=== PATIENT | male | born 1980 | race Caucasian/White ===

== ENCOUNTER 2021-12-21 10:18 | Emergency (ER) | payer SELFPAY ==
[2021-12-21 10:26] VITALS: BP 154/92; PULSE 90; RESP 20; TEMP 36.9; O2SAT 96
--- NOTE | 2021-12-21 10:30 | DI.RAD_ITS ---
Exam(s) XR ELBOW RT COMPLETE EXAM: XR ELBOW RT COMPLETE CLINICAL HISTORY: Right Elbow pain R/O tendonitis. TECHNIQUE: 2D digital imaging was performed. COMPARISON: No exams were available for comparison FINDINGS: BONES: No acute fracture is present. No bony destructive lesion is seen. JOINTS: The elbow is normally aligned. No joint effusion is seen. SOFT TISSUE: Normal. IMPRESSION: Unremarkable radiographs of the right elbow. DATA REPOSITORY: RADIATION DOSE DELIVERED:
--- NOTE | 2021-12-21 10:38 | ED.GENADUL_ITS ---
Discharge Plan Disposition Patient Disposition: HOME Condition: Stable Discharge Details Clinical Impression: Sprain of elbow, right Primary Care Provider: None,None ED Provider: Vanessa Cleaning Home Meds and New Rx's Prescriptions: No Action No Known Home Meds 0RF Discharge Instructions Instructions: Elbow Sprain (ED), Tendinitis (ED) Additional Instructions: X-rays show no acute abnormalities. Please take Tylenol or Ibuprofen with food every 4-6 hours as needed for pain and swelling. Use the splint and Keron wrap as needed for comfort. Wear sling while resting. Rest, ice, compression, elevation. Follow up with primary care provider in 3-5 days. Return to ED sooner if any worsening or concerns. Increase oral fluids. If continued pain please follow-up with orthopedics in the next 1 to 2 weeks. Stand Alone Forms: Work Release Referrals: Rickie Anne MD [ [facility] STAFF PHYSICIAN] - 2 weeks Medical Decision Making 41-year-old male presents to the ER with chief complaint of right forearm and elbow pain x1/2 months. Patient reports that he did a heavy lifting activity and felt a pop to his inner right AC and it has been bothering him since. Pain is worse with pronation and supination and placing pressure. Pain is also worse with thumb and little finger discrimination. He has not taken any Tylenol or ibuprofen. 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 Denies any other known injuries. No obvious deformity or swelling noted on initial exam. Distal CMS is intact. Past medical history includes hypertension. Past surgical history includes a hernia repair. No known drug allergies no home medications. I suspect tendinitis or some lower versus sprain. Imaging ordered to rule out any bony abnormality. Discussed RICE procedures with patient Tylenol ibuprofen. And follow-up with Ortho if symptoms persist. Patient verbalizes understanding. EXAM: XR ELBOW RT COMPLETE CLINICAL HISTORY: Right Elbow pain R/O tendonitis. TECHNIQUE: 2D digital imaging was performed. COMPARISON: No exams were available for comparison FINDINGS: BONES: No acute fracture is present. No bony destructive lesion is seen. JOINTS: The elbow is normally aligned. No joint effusion is seen. SOFT TISSUE: Normal. IMPRESSION: Unremarkable radiographs of the right elbow. Discussed RICE procedures the patient verbalized understanding. Patient was given Keron wrap and sling directed on Tylenol ibuprofen. This text was generated using [employer] dictation system, please disregard any oddities of phrase or misspellings. HPI General Mode of arrival: ambulatory . Date/Time Provider Initiated Documentation: 12/21/21 10:19 . Limitations to Documentation: no limitations . Information obtained by: patient, RN notes reviewed and old records reviewed . HPI Narrative: 41-year-old male presents to the ER with chief complaint of right forearm and elbow pain x1/2 months. Patient reports that he did a heavy lifting activity and felt a pop to his inner right AC and it has been bothering him since. Pain is worse with pronation and supination and placing pressure. Pain is also worse with thumb and little finger discrimination. He has not taken any Tylenol or ibuprofen. 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 Denies any other known injuries. No obvious deformity or swelling noted on initial exam. Distal CMS is intact. Past medical history includes hypertension. Past surgical history includes a hernia repair. No known drug allergies no home medications. Related Data Home Medications Medication Instructions Recorded Confirmed Unknown [No Known Home Meds] 12/21/21 12/21/21 Allergies Allergy/AdvReac Type Severity Reaction Status Date / Time No Known Allergies Allergy Unverified 12/21/21 10:31 General Stated Complaint: Orthopedic OVIDIO: 4 Review of Systems All systems reviewed & are unremarkable except as noted in HPI and below Musculoskeletal Musculoskeletal: Reports as per HPI and Reports arthralgias PFSH All Active Problems (Updated 12/21/21 @ 11:24 by Vanessa Cleaning) Sprain of elbow, right (Acute) Social History Smoking/Tobacco Use Status: Current every day Tobacco Type: cigarettes Smoking risk assessment performed?: Yes Alcohol Intake: current Alcohol Intake frequency: holidays/special occasions only Drug use: Occasionally Substance use type: marijuana Do you feel safe at home: Yes Do you feel safe in your relationship?: Yes Exam Extrem Right upper extremity: normal to inspection, normal capillary refill, no joint enlargement and elbow/forearm Details: normal to inspection, tenderness (Pain with pronation supination, two-point discrimination.) Location: of the antecubital fossa and of the medial epicondyle and distal pulses intact; Negative for no lacerations, no ecchymosis and no crepitus; No no cyanosis and no edema Course Vital Signs Vital signs: Vital Signs Temperature 36.9 C 12/21/21 10:26 Pulse 90 12/21/21 10:26 Respiratory Rate 20 12/21/21 10:26 Blood Pressure 154/92 H 12/21/21 10:26 Pulse Oximetry 96 12/21/21 10:26 Temperature 36.9 C 12/21/21 10:26 Temperature Source Skin 12/21/21 10:26 Pulse 90 12/21/21 10:26 Respiratory Rate 20 12/21/21 10:26 Respiratory Effort 12/21/21 10:30 Blood Pressure 154/92 H 12/21/21 10:26 Pulse Oximetry 96 12/21/21 10:26 Oxygen Delivery Method Room Air 12/21/21 10:26 Oxygen Flow Rate 0 12/21/21 10:26 Pain Level 8 12/21/21 10:26
[2021-12-21] MEDS: Ibuprofen 600 MG TAB PO (11:11)
== END 2021-12-21 11:40 | disposition home or self-care (01) ==
PROVIDERS: Emergency Provider Registered Nurse Emergency
DX: S53.492A Other sprain of left elbow, initial encounter (principal); X50.0XXA Overexertion from strenuous movement or load, initial encounter
CPT/HCPCS: 99283; 73080

== ENCOUNTER 2023-01-08 15:28 | Emergency (ER) | payer SELFPAY ==
[2023-01-08 15:31] VITALS: BP 165/99; PULSE 82; RESP 18; TEMP 36.7; O2SAT 100
--- NOTE | 2023-01-08 15:41 | W.ED.GENAD ---
Discharge Plan Disposition Patient Disposition: Home Condition: Stable Discharge Details Clinical Impression: Dental infection Primary Care Provider: None,None ED Provider: Vanessa Cleaning Home Meds and New Rx's Prescriptions: New amoxicillin-pot clavulanate 875-125 mg tablet 1 tab PO BID 10 Days Qty: 20 0RF No Action doxycycline monohydrate 100 mg tablet 100 mg PO BID Qty: 14 0RF Patient Comments: patient not taking any home medications at this time Discharge Instructions Instructions: Toothache (ED) Additional Instructions: Use the HurriCaine gel up to 3 times daily as needed for pain. Take the antibiotics twice daily for the next 10 days as directed. Practice good oral hygiene. Please follow-up with a dentist. Please take Tylenol or Ibuprofen with food every 4-6 hours as needed for pain and swelling. Discharge Data Discharge Date/Time-TO BE ENTERED AT DEPARTURE: 01/08/23 16:19 Medical Decision Making Patient given HurriCaine gel, Augmentin 1 tablet twice daily for the next 10 days. First dose given here in the ER. Patient was given dental resources and encouraged to follow-up with dentist. Discussed tricked return instructions. This text was generated using [employer] dictation system, please disregard any oddities of phrase or misspellings. HPI General Mode of arrival: ambulatory. Date/Time Provider Initiated Documentation: 01/08/23 15:31. Limitations to Documentation: no limitations. Information obtained by: patient, RN notes reviewed and old records reviewed. HPI Narrative: 42 year old male presents to the ER with chief complaint of right upper dental pain and facial swelling. He does have chronic poor dentition he reports he does not see a dentist. He reports over the last few days the swelling and pain have increased and he is sensitive to cold. He does have an eroded tooth, some swelling and erythema of the gums. Posterior oropharynx within normal limits. He is a smoker. He has not been on any antibiotics recently per his report. He does have a past medical history of hypertension Related Data Home Medications Medication Instructions Recorded Confirmed doxycycline monohydrate 100 mg 100 mg PO BID #14 tabs 04/20/22 tablet amoxicillin 875 mg-potassium 1 tab PO BID 10 days #20 tabs 01/08/23 clavulanate 125 mg tablet Previous Rx's Medication Instructions Recorded doxycycline monohydrate 100 mg 100 mg PO BID #14 tabs 04/20/22 tablet amoxicillin 875 mg-potassium 1 tab PO BID 10 days #20 tabs 01/08/23 clavulanate 125 mg tablet Allergies Allergy/AdvReac Type Severity Reaction Status Date / Time No Known Allergies Allergy Unverified 12/21/21 10:31 General Stated Complaint: DentalOral OVIDIO: 4 Review of Systems All systems reviewed & are unremarkable except as noted in HPI and below ENT Ears, Nose, Mouth, and Throat: Reports dental pain and Reports facial pain (Facial swelling) PFSH All Active Problems (Updated 01/08/23 @ 16:01 by Vanessa Cleaning NP) Dental infection (Acute) Social History Smoking/Tobacco Use Status: Current every day Tobacco Type: cigarettes Years smoked: 27 Smoking risk assessment performed?: Yes Alcohol Intake: current Alcohol Intake frequency: holidays/special occasions only Drug use: Occasionally Substance use type: marijuana Do you feel safe at home: Yes Do you feel safe in your relationship?: Yes Exam [facility] Head images: 1. Facial swelling General nose exam: external nose normal and nares normal Teeth and gingiva: caries, gingiva abnormal edematous and diffusely erythematous and poor dentition Throat: posterior oropharynx normal Course Vital Signs Vital signs: Vital Signs Temperature 36.7 C 01/08/23 15:31 Pulse 82 01/08/23 15:31 Respiratory Rate 18 01/08/23 15:31 Blood Pressure 165/99 H 01/08/23 15:31 Pulse Oximetry 100 01/08/23 15:31 Temperature 36.7 C 01/08/23 15:31 Temperature Source Temporal Artery Scan 01/08/23 15:31 Pulse 82 01/08/23 15:31 Respiratory Rate 18 01/08/23 15:31 Blood Pressure 165/99 H 01/08/23 15:31 Blood Pressure Position Sitting 01/08/23 15:31 Pulse Oximetry 100 01/08/23 15:31 Oxygen Delivery Method Room Air 01/08/23 15:31 Oxygen Flow Rate 0 01/08/23 15:31 Pain Level 6 01/08/23 15:31
[2023-01-08] MEDS: Amox. 875/Clav. 125, 2 TABS/BTL 1 TAB PO (15:52)
[2023-01-08] MEDS: Amoxicillin 875/Clav. 125 TAB PO (15:54)
[2023-01-08] MEDS: Benzocaine 20% Gel 30 GM JAR MM (15:54)
== END 2023-01-08 16:19 | disposition home or self-care (01) ==
PROVIDERS: Emergency Provider Registered Nurse Emergency
DX: K04.7 Periapical abscess without sinus (principal)
CPT/HCPCS: 99283; 99284

== ENCOUNTER 2023-06-12 12:49 | Emergency (ER) | payer SELFPAY ==
[2023-06-12 13:08] VITALS: BP 188/117; PULSE 49; RESP 18; TEMP 37.1; O2SAT 94
--- NOTE | 2023-06-12 13:39 | W.ED.GENAD ---
Discharge Plan Disposition Patient Disposition: Home Condition: Improving Discharge Details Clinical Impression: Dental caries into pulp, Left elbow pain Primary Care Provider: Unknown,Unknown ED Provider: Amy Castelan Home Meds and New Rx's Prescriptions: New penicillin V potassium 500 mg tablet 500 mg PO QID Qty: 40 0RF Rx Instructions: Take with a probiotic No Action doxycycline monohydrate 100 mg tablet 100 mg PO BID Qty: 14 0RF Patient Comments: patient not taking any home medications at this time Discharge Instructions Instructions: Dental Caries (ED), How to Use a Sling (ED), Elbow Sprain (ED), Cervical Radiculopathy (ED) Additional Instructions: 1. Start penicillin 500 mg every 6 hours for 10 days. Take a probiotic while on antibiotics. Call or take an appoint with the dentist and return to the emergency department if you develop any difficulty breathing talking or swallowing. 2. Your elbow pain may be from your previous injury but also could be a pinched nerve in your neck. You will be contacted by the orthopedic office for follow-up appointment for your elbow. Tell them about the neck pain as well. 3. Alternate 1000 mg of acetaminophen every 3 hours with 400 to 600 mg of ibuprofen as needed for pain. You may also use an skit-fto-lwnnusw analgesic such as Anbesol for the toothache. 4. You will also be contacted by the primary care clinic for follow-up for your blood pressure. You should take your blood pressure at the drugstore and record it to bring with you to your follow-up appointment. Discharge Data Discharge Physician: Amy Castelan Medical Decision Making This is a 42-year-old male who presents with dental caries without evidence of buccal cellulitis, Ludewig's angina or dental abscess. He has poor general dentition and has never seen a dentist that he can recall in his lifetime. The pain does radiate to the left ear but that appears to be normal and is probably just referred pain. My plan is to perform a dental block adjacent to the affected teeth and start him on penicillin. He is also complaining of elbow pain after an injury several months ago. The pain does radiate to his neck. He has not had any injury to his neck but he certainly could have a cervical radiculopathy. We will obtain plain films of the left elbow to rule out occult fracture. The patient does have a sling at home which he has been using. My plan is to discharge him on penicillin with orthopedic, primary care and dental follow-up. Differential Diagnosis Differential Diagnosis: Dental caries, apical abscess, cervical radiculopathy, elbow fracture Medical Records Medical records reviewed: Yes I reviewed the patient's medical records. Imaging Data Radiologic Study: Imaging: X-Ray Radiologist's impression: Unremarkable radiographs of the left elbow HPI General Mode of arrival: ambulatory. Date/Time Provider Initiated Documentation: 06/12/23 13:39. Limitations to Documentation: no limitations. Information obtained by: patient. History of Present Illness with intensity rated at 10. Patient did receive the following treatments prior to arrival, none HPI Narrative: Time seen was 1341 in bed 10. 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 The patient states that he has never seen a dentist. He has never had his wisdom teeth extracted. He has had gradually increasing and intermittent left upper and left lower jaw pain which got worse over the past several days. The pain is currently 10 out of 10 in severity and radiates to his left ear. He denies any swelling in his mouth or difficulty breathing talking or swallowing. He denies any foul discharge in his mouth. The pain is constant and aggravated by eating and extremes of temperature. He denies any fever or chills. The patient is also complaining of left elbow pain after an injury several months ago where he slipped and hit it against an object. He has not been seen for the elbow. He denies any numbness or tingling. He states that the pain radiates to his left neck. He tells me that the elbow pain is aggravated when he drives. He denies any injury prior to the injury several months ago. He denies any swelling under his tongue. He has no history of immune compromise. Related Data Home Medications Medication Instructions Recorded Confirmed doxycycline monohydrate 100 mg 100 mg PO BID #14 tabs 04/20/22 tablet penicillin V potassium 500 mg 500 mg PO QID #40 tabs 06/12/23 tablet Previous Rx's Medication Instructions Recorded doxycycline monohydrate 100 mg 100 mg PO BID #14 tabs 04/20/22 tablet penicillin V potassium 500 mg 500 mg PO QID #40 tabs 06/12/23 tablet Allergies Allergy/AdvReac Type Severity Reaction Status Date / Time No Known Allergies Allergy Unverified 12/21/21 10:31 General Stated Complaint: DentalOral OVIDIO: 4 Review of Systems Narrative: see hpi Respiratory Comments: The patient does smoke PFSH All Active Problems Dental caries into pulp (Acute) Left elbow pain (Acute) Social History Smoking/Tobacco Use Status: Current every day Tobacco Type: cigarettes Years smoked: 27 Smoking risk assessment performed?: Yes Alcohol Intake: current Alcohol Intake frequency: holidays/special occasions only Drug use: Occasionally Substance use type: marijuana Do you feel safe at home: Yes Do you feel safe in your relationship?: Yes Exam Narrative Exam Narrative: The patient is a well-developed well-nourished male with normal phonation. He is slightly hypertensive. He is not tachycardic tachypneic or febrile. His room air O2 sat is acceptable at 94% he does not appear in acute respiratory distress. Const General: cooperative, healthy appearing, comfortable, no acute distress, well developed, well groomed and well hydrated Nutritional Appearance: average body habitus and well nourished Orientation: alert, awake and oriented x3 HENMT Head: normal to inspection, normocephalic and atraumatic Ears: hearing grossly normal bilaterally, external ears normal and TM normal on the left General nose exam: external nose normal, nares normal and no nasal discharge Face and sinus: normal facial exam, sinuses nontender, face symmetric and other (No facial swelling or erythema) Mouth: oral mucosae normal, lip normal, tongue normal, oropharynx normal, moist mucous membranes and other (Normal phonation. The patient is handling secretions.) Teeth and gingiva: poor dentition and other (The patient does have a large cavity in tooth #13 and 17.) Throat: posterior oropharynx normal and uvula midline Other: No evidence of Unruly's angina. No swelling underneath the tongue. No buccal cellulitis. Airways patent no stridor. He is handling secretions. He does have gingivitis and severe plaque buildup at the base of most of his teeth. The caries are down to the pulp. No significant submandibular adenopathy Eyes General: appearance normal, both eyes and all related structures Eyelids: eyelids normal Conjunctivae: conjunctivae normal Sclera: sclerae normal Cornea: corneas normal Pupils: PERRL EOM: EOM intact bilaterally and No nystagmus Neck Neck: normal visual inspection, full ROM, no lymphadenopathy, no meningeal signs, trachea midline and supple Lymphatic: no lymphadenopathy noted Chest Chest: normal inspection of the chest Resp Effort & Inspection: normal respiratory effort, able to speak in complete sentences, no audible wheezes, no nasal flaring, no respiratory distress, no retractions, no stridor, not tachypneic, no tracheal deviation, no use of accessory muscles, No prolonged expiratory phase and other (Normal inspiratory to expiratory ratio.) Auscultation: clear to auscultation bilaterally, no rales, no rhonchi, no wheezes and no rubs Tactile Fremitus: tactile fremitus absent Cardio Jugular venous pressure: no JVD Palpation: normal PMI Rate: regular rate Rhythm: regular rhythm Heart Sounds: S1 normal, S2 normal, no gallops, no murmurs and no rubs GI Inspection: normal to inspection and non-distended Palpation: soft, no hepatosplenomegaly, no guarding and nontender Percussion: normal to percussion Auscultation: normal bowel sounds Back/Spine/Pelvis Back: no CVA tenderness and No back tenderness Cervical Spine: normal cervical lordosis, cervical ROM normal, No cervical muscular tenderness, No pain with cervical ROM, No cervical spinal tenderness and No step off deformity Thoracic/Lumbar Spine: thoracic and lumbar spine normal to inspection, No thoracic spinal tenderness and No lumbar spinal tenderness Skin General skin exam: no rashes or lesions noted, turgor normal, no petechiae, no purpura and other (Skin is normal for ethnicity.) Lesions: no lesions Rashes: no rashes Trauma: no lacerations or abrasions Neuro General: patient alert, patient awake, patient oriented x3, moves all extremities, no meningeal signs, no focal motor deficits and CN's II-XI intact bilaterally Cranial Nerves: CN's II-XI intact bilaterally, PERRL, accommodation normal, EOM intact bilaterally, no nystagmus, facial strength normal, tongue midline, hearing normal and no nystagmus Cognition: normal cognition Speech: speech normal Gait: normal gait Motor: muscle tone normal throughout and strength 5/5 throughout Sensory Exam: no sensory deficits noted Extrem Other: He is moving all of his extremities normally. The left elbow has full range of motion but is slightly tender over the lateral epicondyles of the left elbow. He is full range of motion of the left wrist hand and shoulder. He is neurovascularly intact distal to the left elbow. The remainder of his extremities are unremarkable no edema cyanosis or clubbing Psych Appearance: grossly normal Affect: normal affect Attitude: cooperative Thought Process: normal Thought Content: normal Insight: insight good Judgment: judgment good Other: The patient appears to have capacity make medical decisions. Course The patient had improvement of his dental pain after the block. I have advised him to follow-up with primary care orthopedics and dentistry. I have advised him to alternate acetaminophen and and ibuprofen as needed for pain. I have advised him to take penicillin as directed and to take a probiotic. Patient voiced understanding and agreement with the discharge plan. All his questions and concerns were addressed prior to discharge Vital Signs Vital signs: Vital Signs Temperature 37.1 C 06/12/23 13:08 Pulse 49 L 06/12/23 13:08 Respiratory Rate 18 06/12/23 13:08 Blood Pressure 188/117 H 06/12/23 13:08 Pulse Oximetry 94 06/12/23 13:08 Temperature 37.1 C 06/12/23 13:08 Temperature Source Skin 06/12/23 13:08 Pulse 49 L 06/12/23 13:08 Respiratory Rate 18 06/12/23 13:08 Respiratory Effort Normal 06/12/23 13:10 Blood Pressure 188/117 H 06/12/23 13:08 Blood Pressure Position Sitting 06/12/23 13:08 Pulse Oximetry 94 06/12/23 13:08 Oxygen Delivery Method Room Air 06/12/23 13:08 Oxygen Flow Rate 0 06/12/23 13:08 Pain Level 10 06/12/23 13:08 Procedures Other Description: After verbal consent, dental block was placed using plain 0.5% bupivacaine adjacent to the affected teeth with improvement of his symptoms. He tolerated the procedure well
[2023-06-12] MEDS: Ibuprofen 600 MG TAB PO (13:57)
[2023-06-12] MEDS: Acetaminophen 500 MG TAB 1000 MG PO (13:57)
[2023-06-12] MEDS: Penicillin V POTASSIUM 500 MG TAB PO (13:58)
--- NOTE | 2023-06-12 14:29 | DI.RAD_ITS ---
Exam(s) XR ELBOW LT COMPLETE EXAM: XR ELBOW LT COMPLETE CLINICAL HISTORY: trauma 6 months ago. TECHNIQUE: 2D digital imaging was performed. Three views. COMPARISON: CR XR ELBOW RT COMPLETE from 12/21/2021 FINDINGS: BONES: No acute fracture is present. No bony destructive lesion is seen. JOINTS: The elbow is normally aligned. No joint effusion is seen. SOFT TISSUE: Normal. IMPRESSION: Unremarkable radiographs of the left elbow. DATA REPOSITORY: RADIATION DOSE DELIVERED:
[2023-06-12 15:10] VITALS: BP 168/104; PULSE 80
[2023-06-12 15:43] VITALS: BP 168/104; PULSE 80; RESP 14; TEMP 36.7
--- NOTE | 2023-06-12 20:19 | NUR.NOTE ---
Pt placed on care management list to establish PCP.
== END 2023-06-12 15:39 | disposition home or self-care (01) ==
PROVIDERS: Emergency Provider Emergency Medicine Emergency Medical Services
DX: K08.89 Other specified disorders of teeth and supporting structures (principal); M25.522 Pain in left elbow; K02.9 Dental caries, unspecified; W01.198A Fall on same level from slipping, tripping and stumbling with subsequent striking against other object, initial encounter
CPT/HCPCS: 64400; 99283; 73080

== ENCOUNTER 2023-06-14 06:14 | Emergency (ER) | payer SELFPAY ==
[2023-06-14 06:17] VITALS: BP 201/142; PULSE 82; RESP 18; TEMP 36.8; O2SAT 99
--- NOTE | 2023-06-14 06:37 | W.ED.GENAD ---
Discharge Plan Disposition Patient Disposition: Home Condition: Good Discharge Details Clinical Impression: Pain, dental Primary Care Provider: Unknown,Unknown ED Provider: Samuel Wen Home Meds and New Rx's Prescriptions: No Action doxycycline monohydrate 100 mg tablet 100 mg PO BID Qty: 14 0RF Patient Comments: patient not taking any home medications at this time penicillin V potassium 500 mg tablet 500 mg PO QID Qty: 40 0RF Rx Instructions: Take with a probiotic Discharge Instructions Instructions: Toothache (ED) Additional Instructions: The block we administered should help improve your pain. Please take 800 mg of ibuprofen every 6 hours and 1000 mg of Tylenol every 6 hours to help with the inflammation and pain. These are the maximum doses. Please take the antibiotic as directed to help with the infection in your tooth. Please use the dental list that we have provided to contact the dentist for prompt follow-up and evaluation for tooth removal. If you notice any worsening of your symptoms, or any new symptoms such as difficulty swallowing, difficulty breathing, vomiting, diarrhea, fever, chills, shortness of breath, chest pain, numbness, weakness, or fainting , please return immediately to the emergency department for reevaluation. Please follow up with your primary care provider as soon as possible for reassessment and reevaluation. As always, it was a pleasure participating in your medical care today. Medical Decision Making This is a pleasant 42-year-old male with no significant past medical history except for dental caries who presents today for left upper dental pain. He was seen just a few days ago for dental pain. Dental block was performed, unfortunately he states that it did not help at all when it was administered. He was started on penicillin and he has been taking this as directed. He has not been able to follow-up with a dentist yet. He presents tonight because pain is still notable. He has been taking Tylenol and Motrin and that is the only thing that can help. No other complaints at this time. No difficulty swallowing or drinking. No vision changes. Exam demonstrates notable dental caries, no evidence of periapical abscess, Ludewig's angina, swelling or other abnormalities. Suspect continued pulpitis. Did offer dental block, patient accepted, dental block administered and patient states that his pain resolved completely after block. Patient feels much better. Will recommend continuation of antibiotics. Patient did not have a dental sheet, we will give him a dental sheet to go home with. Recommend continuation of the antibiotics, continued NSAID use. We will give a small bottle of [place] pills for home. I have extensively reviewed the treatment plan and discharge instructions with the patient. I have addressed all patient concerns at this time. The patient was made aware of what symptoms to monitor for that would warrant a return to the emergency department. Discussed the plan with the patient, they demonstrate verbal understanding and agreement with our assessment and plan at this time. The documentation in this chart was dictated using [employer] dictation software. Please excuse any dictation errors. HPI General Date/Time Provider Initiated Documentation: 06/14/23 06:22. HPI Narrative: This is a pleasant 42-year-old male with no significant past medical history except for dental caries who presents today for left upper dental pain. He was seen just a few days ago for dental pain. Dental block was performed, unfortunately he states that it did not help at all when it was administered. He was started on penicillin and he has been taking this as directed. He has not been able to follow-up with a dentist yet. He presents tonight because pain is still notable. He has been taking Tylenol and Motrin and that is the only thing that can help. No other complaints at this time. No difficulty swallowing or drinking. No vision changes. Related Data Home Medications Medication Instructions Recorded Confirmed doxycycline monohydrate 100 mg 100 mg PO BID #14 tabs 04/20/22 tablet penicillin V potassium 500 mg 500 mg PO QID #40 tabs 06/12/23 tablet Previous Rx's Medication Instructions Recorded doxycycline monohydrate 100 mg 100 mg PO BID #14 tabs 04/20/22 tablet penicillin V potassium 500 mg 500 mg PO QID #40 tabs 06/12/23 tablet Allergies Allergy/AdvReac Type Severity Reaction Status Date / Time No Known Allergies Allergy Unverified 12/21/21 10:31 General Stated Complaint: DentalOral OVIDIO: 4 Review of Systems All systems reviewed & are unremarkable except as noted in HPI and below PFSH All Active Problems Dental caries into pulp (Acute) Left elbow pain (Acute) Pain, dental (Acute) Social History Smoking/Tobacco Use Status: Current every day Tobacco Type: cigarettes Years smoked: 27 Smoking risk assessment performed?: Yes Alcohol Intake: current Alcohol Intake frequency: holidays/special occasions only Do you feel safe at home: Yes Do you feel safe in your relationship?: Yes Exam Narrative Exam Narrative: 1.Const: Well-nourished, Well-developed, appearing stated age 2.Eyes: PERRL, no conjunctival injection, and symmetrical lids. 3.ENT: Atraumatic external nose and ears. Moist MM. Neck: Symmetric, trachea midline, No thyromegaly. Notable dental caries. No evidence of Ludewig's angina. No evidence of airway compromise. 4.CVS: +S1/S2, No murmurs or gallops. Peripheral pulses 2+ and equal in all extremities. Brisk capillary refill in all extremities. 5.RESP: Unlabored respiratory effort. Clear to auscultation bilaterally. No wheezes rales or rhonchi 6.GI: Soft, Nontender/Nondistended, No hepatosplenomegaly. No guarding or rebound. 7.MSK: Normocephalic/Atraumatic, Extremities w/o deformity or ttp No cyanosis or clubbing, Normal movement of all extremities 8.Skin: Warm, Dry. No rashes or lesions. 9.Neuro: medical device II-XII grossly intact. Sensation grossly intact, no focal neurologic deficits. 10.Psych: (AAO) x3. Appropriate mood and affect Course Vital Signs Vital signs: Vital Signs Temperature 36.8 C 06/14/23 06:17 Pulse 82 06/14/23 06:17 Respiratory Rate 18 06/14/23 06:17 Blood Pressure 201/142 H 06/14/23 06:17 Pulse Oximetry 99 06/14/23 06:17 Temperature 36.8 C 06/14/23 06:17 Temperature Source Oral 06/14/23 06:17 Pulse 82 06/14/23 06:17 Respiratory Rate 18 06/14/23 06:17 Respiratory Effort Normal 06/14/23 06:20 Blood Pressure 201/142 H 06/14/23 06:17 Pulse Oximetry 99 06/14/23 06:17 Oxygen Delivery Method Room Air 06/14/23 06:17 Oxygen Flow Rate 0 06/14/23 06:17 Pain Level 9 06/14/23 06:20 Procedures Nerve Block Nerve Block 1: Time out performed: Yes Local Anesthetic: Bupivicaine 0.25% Amount of anesthesia used (mL): 6 Side: left Intraoral Nerve Block: superior alveolar Procedure Successful: Yes Patient Tolerated Procedure: well and no complications Complications: none PAWSS Have you Been Recently Intoxicated or Drunk Within the Last 30 days?: No Have you Ever Experienced Previous Episodes of Alcohol Withdrawal?: No Have you ever Experienced Withdrawal Seizures?: No Have you ever Experienced Delirium Tremens(DT)s?: No Have you ever undergone Alcohol Rehabilitation Treatment (i.e, inpt ot outpatient treatment programs)?: No Have you ever Experienced Blackouts?: No Have you ever Combined Alcohol with other Downers within the last 90 days?: No Have you ever Combined Alcohol with any other Substance of Abuse during the last 90 days?: No Positive Blood Alcohol level on Presentation? [PCS.BAL]: No Evidence of Increased Autonomic Activity (i.e. HR>120, tremor, sweating, agitation, nausea)?: No Result: 0
== END 2023-06-14 06:44 | disposition home or self-care (01) ==
PROVIDERS: Emergency Provider Student in an Organized Health Care Education/Training Program
DX: K08.89 Other specified disorders of teeth and supporting structures (principal); F17.210 Nicotine dependence, cigarettes, uncomplicated
CPT/HCPCS: 64400; 99283

== ENCOUNTER 2024-09-01 11:03 | Emergency (ER) | payer SELFPAY ==
[2024-09-01 11:06] VITALS: BP 105/71; PULSE 73; RESP 15; TEMP 36.3; O2SAT 98
--- NOTE | 2024-09-01 11:06 | ED.GENADUL_ITS ---
Discharge Plan Disposition Patient Disposition: Home Discharge Details Clinical Impression: Community acquired pneumonia of right lung Primary Care Provider: None,None ED Provider: Rick Ricci Home Meds and New Rx's Prescriptions: New amoxicillin 500 mg tablet 500 mg PO BID Qty: 14 0RF Discharge Instructions Instructions: Community-acquired pneumonia in adults Additional Instructions: You were seen in the emergency department for your cough. You are found to have a pneumonia for which you are receiving antibiotics that you should take as directed. As we discussed, if you develop worsening pain passout or develop fevers please return to the emergency department. For your pain please take medications as follows: 1. Take acetaminophen (Tylenol), 1,000 mg (two 500 mg tabs) every 6 hours [2. Take ibuprofen (Advil), 400 mg every 6 hours.] Stand Alone Forms: Work Release Discharge Data Discharge Date/Time-TO BE ENTERED AT DEPARTURE: 09/01/24 13:21 HPI General Date/Time Provider Initiated Documentation: 09/01/24 11:06 . HPI Narrative: MDM This is an overall very well-appearing afebrile and not tachycardic 44-year-old male with productive cough and small-volume hematemesis concerning for the possibility of pneumonia for which he will chest x-ray and COVID swab. Patient is not having chest pain or any large-volume hematemesis so I am not suspicious for PE so I did not feel he required a CT angiogram. He has not been vomiting so my suspicion is low for hematemesis. He has no history of malignancy so I am not suspicious for any erosion in any pulmonary vessels. No trauma to suggest increased risk for bronchial tree injury so we will defer CT scan. He is not anticoagulated so I do not feel that he requires assessment of his hemoglobin as he is neither tachycardic nor hypotensive and he does not have pale mucous conjunctiva so my suspicion for acute blood loss anemia is low as I do not feel he requires any laboratory assessment. No recent epistaxis to suggest source of bleeding. He is maintaining his saturations on room air and even if he does have a pneumonia I feel he will be appropriate for empiric trial of outpatient management and as result given that he is not vomiting I did not obtain a basic metabolic panel as I did not feel that he required assessment of a port score. He has no history of any bleeding dyscrasias so I am not suspicious for any malignancies. Will swab for COVID and reassess following two-view chest x-ray. 12:11 PM On chest x-ray patient had right-sided infiltrate. Will treat with amoxicillin for 7 days. Patient I discussed that he should return if he developed worsening bloody sputum chest pain or if he passed out. He understood his return indications and is discharged with an empiric trial of expectant outpatient management. HPI This is a 44-year-old male arrived to the emergency department via private vehicle in the setting of cough shortness of breath and bloody sputum. Patient reports that he had increased sputum over the past week. He felt particularly short of breath with activity and woke up with bloody sputum in his mouth 3 days ago. He reports that he is steadily felt improved. He has not been coughing up any blood. He has not had syncope chest pain. He was hunting several weeks ago and exerted himself and subsequently became short of breath. He is not anticoagulated. He has never had a PE nor DVT. He is a daily smoker and o ccasionally drinks ethanol. He notes that his bloody sputum has been improving. No history of malignancy. No recent epistaxis. Exam General: Well-appearing in no acute distress speaking in complete sentences. Head: Normocephalic, atraumatic. Eye: Extraocular eye movements intact. No conjunctival injection. No scleral icterus. Ear, nose, mouth, throat: Grossly normal inspection. Normal voice, handling secretions normally. Neck: Trachea midline. Cardiovascular: Well-perfused distal extremities. Respiratory: Nonlabored respiration. Right-sided rhonchi. No respiratory distress. Gastrointestinal: Nondistended abdomen. Musculoskeletal: No edema. Moving all 4 extremities spontaneously. Skin: Normal for age and race, grossly normal temperature and turgor. No acute rash. Neurologic: Alert and appropriate, no apparent acute deficits. Psychiatric: Mood and manner are appropriate. Grooming and personal hygiene are appropriate. Related Data Home Medications ?Medication ?Instructions ?Recorded ?Confirmed amoxicillin 500 mg tablet 500 mg PO BID #14 tabs 09/01/24 Previous Rx's ?Medication ?Instructions ?Recorded amoxicillin 500 mg tablet 500 mg PO BID #14 tabs 09/01/24 Allergies Allergy/AdvReac Type Severity Reaction Status Date / Time No Known Allergies Allergy Unverified 09/01/24 11:11 General OVIDIO: 4 Medical Decision Making Quality:SDOH Health Related Social Needs: No Data to Display PFSH All Active Problems (Updated 09/01/24 @ 12:12 by Rick Ricci MD) Community acquired pneumonia of right lung (Acute) Social History Smoking/Tobacco Use Status: Current every day Tobacco Type: cigarettes Years smoked: 27 Smoking risk assessment performed?: Yes Alcohol Intake: current Alcohol Intake frequency: holidays/special occasions only Do you feel safe at home: Yes Do you feel safe in your relationship?: Yes
[2024-09-01 11:10] VITALS: BP 105/71; PULSE 73; RESP 15; TEMP 36.3; O2SAT 98
--- NOTE | 2024-09-01 11:15 | DI.RAD_ITS ---
Exam(s) XR CHEST 2V PA LATERAL EXAM: XR CHEST 2V PA LATERAL CLINICAL HISTORY: cough. TECHNIQUE: 2D digital imaging was performed. COMPARISON: No exams were available for comparison FINDINGS: 2 views: Heart size is normal. The mediastinum is not widened. There is infiltrate in the right lung base, medially. Measures approximately 5 x 3 cm. Probably in the right middle lobe medial segment. No confluent infiltrate in the opposite-left lung. There are no pleural effusions. IMPRESSION: Area of significant infiltrate in the medial right lung base appearing to be in the medial segment of the right middle lobe. Close follow-up recommended. No pleural effusions. DATA REPOSITORY: RADIATION DOSE DELIVERED:
== END 2024-09-01 13:21 | disposition home or self-care (01) ==
PROVIDERS: Emergency Provider Emergency Medicine
DX: J18.9 Pneumonia, unspecified organism (principal); F17.210 Nicotine dependence, cigarettes, uncomplicated
CPT/HCPCS: 87426; 99284; 71046